=== PATIENT | female | born 1970 | race Caucasian/White ===

== ENCOUNTER → 2016-09-26 | Outpatient (CLI) | payer OTHER ==
[~2016-09-26] MED LIST: DOXYCYCLINE MO100 M1 PO; ESCITALOPRAM OX20 MG PO; LANTUS100 U/ML SC; LEXAPRO10 MG PO; LIPITOR10 MG PO; LISINOPRIL AND1 TAB PO; LISINOPRIL/HCTZ1 TA4 PO; LYRICA75 M1 PO; Lopressor25 MG PO; Lovenox40 MG/0.4 PO; METFORMIN HCL1000 MG PO; NOVOLOG FLEX100 U/ML SC; Percocet 325 MG1 TAB PO; TRAMADOL HCL50 MG PO; XARELTO20 M1 PO; ZOLPIDEM TART10 MG PO
== END | disposition home or self-care (01) ==
LOC: US 13:42
DX: M79.604 Pain in right leg (principal); R60.0 Localized edema; R59.9 Enlarged lymph nodes, unspecified

== ENCOUNTER → 2017-03-27 | Outpatient (CLI) | payer BC, OTHER | END | disposition home or self-care (01) | LOC: US 15:08 | DX: M79.604 Pain in right leg (principal) ==

== ENCOUNTER → 2018-04-29 | Outpatient (CLI) | payer BC, MEDICARE ==
[~2018-04-29] MED LIST changes: +BACLOFEN5 MG PO; +DOXYCYCLINE100 M3 PO; +GOOD SENSE ACID20 MG PO; +HYDR12.5C PO; +LANTUS SOL100 UNIT/1 SC; -LANTUS100 U/ML SC; +LOPRESSOR25 MG PO; +LOSARTAN POTASS25 M1 PO; +MEDROL DOSEPAK4 MG PO; +NOVOLOG FL100 UNIT/1 SQ; +PERCOCET 10-321 EACH PO; +PHENERGAN25 M3 PO; +TRAZODONE50 MG PO; +VITAMIN D50000 UNIT PO
[2018-04-29 14:54] LABS: BASO % 0.5 % (0.0-1.0); EOS # 0.2 10*3/uL (0.0-0.4); EOS % 2.2 % (1.0-4.0); HEMATOCRIT 33.1 % (37.0-47.0); HEMOGLOBIN 10.7 g/dl (12.0-16.0); LYMPH # 1.2 10*3/uL (1.3-4.4); LYMPH % 13.9 % (27.0-41.0); MEAN CELL VOLUME 87.1 fl (81.0-99.0); MEAN CORPUSCULAR HGB 28.2 pg (27.0-31.0); MEAN CORPUSCULAR HGB CONC 32.3 g/dl (33.0-37.0); MEAN PLATELET VOLUME 11.4 fl (9.6-12.3); MONO # 0.4 10*3/uL (0.1-1.0); MONO % 4.8 % (3.0-9.0); NEUT # 6.6 10*3/uL (2.3-7.9); NEUT % 78.4 % (47.0-73.0); PLATELET COUNT AUTOMATED 215 10*3/uL (130-400); RED CELL DISTRI WIDTH 15.9 % (0-14.5); WHITE BLOOD COUNT 8.5 10*3/uL (4.8-10.8)
[2018-04-29 15:08] LABS: ALBUMIN 2.9 gm/dl (3.1-4.5); ALKALINE PHOSPHATASE 97 U/L (45-117); BUN 21 mg/dl (7-24); CHLORIDE 105 mmol/L (98-107); CREATININE 0.94 mg/dL (0.55-1.02); POTASSIUM 4.1 mmol/L (3.5-5.1); SGOT/AST 17 IU/L (3-35); SGPT/ALT 20 U/L (12-78); SODIUM 139 mmol/L (136-145); TOTAL PROTEIN 7.4 gm/dL (6.4-8.2)
== END | disposition home or self-care (01) ==
LOC: RESCLI 13:22 → LAB 13:22
PROVIDERS: Emergency Medicine
DX: Z01.818 Encounter for other preprocedural examination (principal); M86.171 Other acute osteomyelitis, right ankle and foot; E11.42 Type 2 diabetes mellitus with diabetic polyneuropathy; E78.00 Pure hypercholesterolemia, unspecified; I10 Essential (primary) hypertension; I82.409 Acute embolism and thrombosis of unspecified deep veins of unspecified lower extremity; F32.9 Major depressive disorder, single episode, unspecified; Z79.84 Long term (current) use of oral hypoglycemic drugs; Z79.899 Other long term (current) drug therapy; Z90.710 Acquired absence of both cervix and uterus; Z88.0 Allergy status to penicillin; Z88.8 Allergy status to other drugs, medicaments and biological substances; Z90.49 Acquired absence of other specified parts of digestive tract

== ENCOUNTER → 2018-04-30 | Day surgery (SDC) | payer BC, MEDICARE ==
[~2018-04-30] VITALS: Ht 170.1 cm; Wt 122.5 kg
--- NOTE | ~2018-04-30 | O ---
[place], [place] OPERATIVE NOTE [id number] UNIT #: [id number] ROOM: DOCTOR: FRANK SERRATOZARINA Noonan BIRTHDATE: [birth year] DOS: 04/30/2018 SURGEON: Dr. Marie. ASSISTANTS: 1. Dr. Alf Ervin, fellow. 2. Vijay Dominguez, PGY1. PREOPERATIVE DIAGNOSES: 1. Osteomyelitis, right ankle, distal tibia. 2. Post-osteomyelitis, right talus. POSTOPERATIVE DIAGNOSES: 1. Osteomyelitis, right ankle, distal tibia. 2. Post-osteomyelitis, right talus. PROCEDURES: 1. Incision and debridement of bone right medial ankle. 2. Incision and debridement of bone of the medial ankle and harvesting bone. 3. Incision and debridement of bone, right talus and harvesting bone. The patient was seen in preoperative holding area. Appropriate site marking was performed. The patient and family concurred. She was brought in the OR and placed on well-padded OR table where anesthesia was achieved. Once the anesthesia was achieved in the operating room, we did appropriate timeout and everybody in the room concurred. At this time, attention was directed to the right lower extremity under fluoroscopy guidance. At this time, attention was turned to the medial portion. PROCEDURE #1: INCISION AND DEBRIDEMENT OF BONE, RIGHT MEDIAL ANKLE: Under fluoroscopy guidance, a 15 blade was used. An incision was made, was deepened in the same plane using sharp and blunt dissection avoiding neurovascular structures, carried down to bone. At this time, a Oaks elevator was used to remove any soft tissue of the bone. At this point in time, the bone was debrided and harvested from the medial tibia and bone was sent for Gram stain, aerobic, anaerobic, fungal acid fast as well as a biopsy. At this point in time, the skin was closed using 3-0 nylon. PROCEDURE #2: INCISION AND BLUNT DEBRIDEMENT OF THE RIGHT ANTEROLATERAL ANKLE: Under fluoroscopic guidance, an incision was made at the anterolateral aspect of the ankle, was deepened in the same plane using sharp and blunt dissection avoiding neurovascular structures, carried down to the bone. With a Oaks elevator, all soft tissue was reflected off the bone anterolaterally. At this point in time, the bone was debrided. Bone was sent for Gram stain, aerobic, anaerobic, fungal acid fast as well as a biopsy. At this point in time, the area was closed with 3-0 Prolene. PROCEDURE #3: INCISION AND BONE DEBRIDEMENT OF THE RIGHT TALUS: An incision was made under fluoroscopic guidance on the anterolateral aspect of the talus. At this point in time, it was deepened in the same plane using sharp and blunt [place], [place] OPERATIVE NOTE NAME: LUCIANO MOROCHO UNIT #: [id number] ROOM: DOCTOR: ZARINA MARIE DPM BIRTHDATE: [birth year] dissection avoiding neurovascular structures, carried down to the bone. At this time, a Oaks elevator was used to resect the soft tissue off the bone. At this time, bone was harvested for Gram stain, aerobic, anaerobic, fungal acid fast as well as a bone biopsy of the right. This wound was closed with 3-0 Prolene. The surgical wounds were dressed with Betadine-soaked Adaptic, 4 x 4s, Marty in a sterile compressive fashion. BK cast was applied to the right lower extremity. She tolerated the procedure and anesthesia well and left the OR with vital signs stable and vascular status intact. ZARINA MARIE DPM CM:OPRECORD:OPERATIVE NOTE [id number] ZARINA MARIE DPM 05/14/18 0804 interface
--- NOTE | ~2018-04-30 | WRIGHTHP ---
[place], [place] PATIENT HISTORY AND PHYSICAL EXAM NAME[facility]: [id number] UNIT #: [id number] ROOM: DOCTOR: ZARINA MARIE DPM BIRTHDATE: [birth year] DOS: 04/30/2018 The patient is seen for followup regarding right ankle ongoing issues. She is having Charcot deformity. She has had an attempted tibiotalar arthrodesis recently and she has had infection wound. At that time, she was set up for surgery at [facility] for bone biopsy and debridement of the bone of the right ankle and right talus. With this in mind, she is aware of pros, cons, risks and benefits. She denies any ongoing issues. She has been taking oral Medrol Dosepak, doxycycline and she is responding extremely well. Her tissue looks very good. Edema is markedly improved. The patient says she feels better and she has been monitoring her diet. Her fasting blood sugar came as 172. With this in mind, she agreed to consent. She agreed the site marking and she agreed the perioperative management. She agreed with the plan of treatment from this point forward. With this in mind, she understands that. Her mom was in the preop holding area, agreed to consent and preoperative management as well and the appropriate site marking. ZARINA MARIE DPM CM:HISPHYS:PATIENT HISTORY AND PHYSICAL EXAMINATION [id number] ZARINA MARIE DPM 05/14/18 0801 interface
--- NOTE | ~2018-04-30 | WRIGHTHP ---
[place], [place] PATIENT HISTORY AND PHYSICAL EXAM [facility]: [id number] UNIT #: [id number] ROOM: DOCTOR: ZARINA MARIE DPM BIRTHDATE: [birth year] DOS: 04/30/2018 LOWER EXTREMITY PHYSICAL EXAMINATION: VASCULAR: She has palpable pedal pulses 2/4 DP and PT bilaterally. Good cap refill time. There is markedly reduced edema in the right lower extremity. NEUROLOGIC: She has lack of protective sensation secondary to diabetic peripheral neuropathy. DERMATOLOGIC: She has multiple superficial noninfected breaks in the skin. Her skin issue is superficial at this point in time. It is markedly improved. It is pink, healthy granular. There are no cardinal signs of infection, drainage, undermining, tunneling noted on the right. Overall, the patient again appears to be doing significantly better. Her edema is reduced. MUSCULOSKELETAL: She is post-surgical reconstruction with infection and antibiotic cement in the right ankle. Orthopedic exam consistent with probable post-osteomyelitis of her right ankle. ZARINA MARIE DPM CM:HISPHYS:PATIENT HISTORY AND PHYSICAL EXAMINATION [id number] ZARINA MARIE DPM 05/14/18 0803 interface
[2018-04-30 07:07] VITALS: BP 166/93
[2018-04-30 08:30] VITALS: BP 143/80
[2018-04-30 08:45] VITALS: BP 166/82
[2018-04-30 09:00] VITALS: BP 132/66
[2018-04-30 09:15] VITALS: BP 128/68
[2018-05-01 17:11] LABS: ACID FAST SPEC PROCESSING Tissue Grinding (.)
[2018-05-01 17:11] LABS: ACID FAST SPEC PROCESSING Tissue Grinding (.)
[2018-06-11 11:04] LABS: ACID FAST CULTURE Negative (.)
[2018-06-11 11:04] LABS: ACID FAST CULTURE Negative (.)
== END | disposition home or self-care (01) ==
LOC: SDC 04-23 10:15
PROVIDERS: Podiatrist
DX: M89.8X7 Other specified disorders of bone, ankle and foot (principal); M86.8X6 Other osteomyelitis, lower leg; I10 Essential (primary) hypertension; E10.9 Type 1 diabetes mellitus without complications; E66.01 Morbid (severe) obesity due to excess calories; Z79.01 Long term (current) use of anticoagulants; Z90.710 Acquired absence of both cervix and uterus; Z98.890 Other specified postprocedural states; Z88.0 Allergy status to penicillin; Z88.8 Allergy status to other drugs, medicaments and biological substances; Z79.899 Other long term (current) drug therapy; Z68.41 Body mass index [BMI] 40.0-44.9, adult

== ENCOUNTER → 2023-07-31 | Day surgery (SDC) | payer OTHER ==
[~2023-07-31] VITALS: Ht 167.6 cm; Wt 95.3 kg
[2023-07-31] VITALS (9 sets, daily range): BP systolic 99–128; BP diastolic 53–87
[~2023-07-31] MED LIST changes: +CIPRO500 MG/5 M PO; +Clindamycin Phosphate 50 ML IV ONE; +DALVANCE500 MG IV; +DOXYCYCLINE HY100 M3 PO; +HYDROCODONE BIT10 MG PO; +HYDROmorphONE Hydrochloride 0.5 MG/0.5 ML SYRINGE IV ONE; +HYDROmorphONE Hydrochloride 0.5 MG/0.5 ML SYRINGE ONE; +Lidocaine Hydrochloride 2% 10 ML AMP IM ONE; +Midazolam Hydrochloride 2 MG/2 ML VIAL IV ONE; +Midazolam Hydrochloride 2 MG/2 ML VIAL IV STA; +OZEMPIC1 MG/0.71 SQ; +PERCOCET 5-3251 EACH PO; +PROPOFOL 200 MG/20 ML VIAL IV ONE; +SODIUM CHLORIDE 0.9% 1,000 ML IV ONE; +SODIUM CHLORIDE 0.9% 1,000 ML IV SCH; +VIBRAMYCIN100 MG PO; +Vancomycin Hydrochloride 1,000 MG VIAL T ONE; +Vancomycin Hydrochloride 250 ML IV ONE; +XARELTO10 MG PO; +ZYVOX600 MG PO; +fentaNYL CITRATE/PF 50 MCG/ML SYRINGE IV ONE; +fentaNYL CITRATE/PF 50 MCG/ML SYRINGE ONE
[2023-08-01 11:08] LABS: ACID FAST SPEC PROCESSING Tissue Grinding (.)
[2023-08-01 11:08] LABS: ACID FAST SPEC PROCESSING Tissue Grinding (.)
[2023-08-01 11:08] LABS: ACID FAST SPEC PROCESSING Tissue Grinding (.)
[2023-08-01 11:08] LABS: ACID FAST SPEC PROCESSING Tissue Grinding (.)
[2023-08-08 15:07] LABS: ANAEROBE RESULT 1 Bacteroides fragilis (.)
[2023-08-08 15:07] LABS: ANAEROBE RESULT 1 Bacteroides fragilis (.)
== END | disposition home or self-care (01) ==
LOC: SDC 07-29 09:30
PROVIDERS: ATTEND Podiatrist
DX: M86.671 Other chronic osteomyelitis, right ankle and foot (principal); E11.622 Type 2 diabetes mellitus with other skin ulcer; L97.319 Non-pressure chronic ulcer of right ankle with unspecified severity; I12.9 Hypertensive chronic kidney disease with stage 1 through stage 4 chronic kidney disease, or unspecified chronic kidney disease; E11.22 Type 2 diabetes mellitus with diabetic chronic kidney disease; N18.31 Chronic kidney disease, stage 3a; E11.3513 Type 2 diabetes mellitus with proliferative diabetic retinopathy with macular edema, bilateral; E11.42 Type 2 diabetes mellitus with diabetic polyneuropathy; F33.42 Major depressive disorder, recurrent, in full remission; E11.21 Type 2 diabetes mellitus with diabetic nephropathy; E11.649 Type 2 diabetes mellitus with hypoglycemia without coma; E11.65 Type 2 diabetes mellitus with hyperglycemia; E11.610 Type 2 diabetes mellitus with diabetic neuropathic arthropathy; E66.01 Morbid (severe) obesity due to excess calories; Z68.38 Body mass index [BMI] 38.0-38.9, adult; Z90.710 Acquired absence of both cervix and uterus; Z98.41 Cataract extraction status, right eye; Z98.42 Cataract extraction status, left eye; Z98.890 Other specified postprocedural states; Z79.899 Other long term (current) drug therapy

== ENCOUNTER → 2023-11-06 | Day surgery (SDC) | payer OTHER ==
[~2023-11-06] VITALS: Ht 167.6 cm; Wt 95.3 kg
[2023-11-06] VITALS (7 sets, daily range): BP systolic 89–149; BP diastolic 47–76
[~2023-11-06] MED LIST changes: +ACETAMINOPHEN 100 ML IV ONE; +BUPIVACAINE 0.5% 30 ML IV ONE; +FLUCONAZOLE 100 MG TAB PO SCH; +FLUCONAZOLE100 MG PO; -HYDROmorphONE Hydrochloride 0.5 MG/0.5 ML SYRINGE IV ONE; -HYDROmorphONE Hydrochloride 0.5 MG/0.5 ML SYRINGE ONE; +Ketorolac Tromethamine 30 MG/ML VIAL IV ONE; +LINEZOLID 600 MG TAB PO SCH; +Lactated Ringer's Solution 1,000 ML IV ONE; -Midazolam Hydrochloride 2 MG/2 ML VIAL IV ONE; -Midazolam Hydrochloride 2 MG/2 ML VIAL IV STA; +Ondansetron Hydrochloride 4 MG/2 ML VIAL IV ONE; +RIVAROXABAN 10 MG TAB PO SCH; +Ropivacaine Hydrochloride 5 MG/ML 20 ML AMP IJ ONE; -SODIUM CHLORIDE 0.9% 1,000 ML IV ONE; -SODIUM CHLORIDE 0.9% 1,000 ML IV SCH; -fentaNYL CITRATE/PF 50 MCG/ML SYRINGE IV ONE; -fentaNYL CITRATE/PF 50 MCG/ML SYRINGE ONE
[2023-11-07 11:08] LABS: ACID FAST SPEC PROCESSING Tissue Grinding (.)
[2023-11-07 11:08] LABS: ACID FAST SPEC PROCESSING Tissue Grinding (.)
[2023-11-07 11:08] LABS: ACID FAST SPEC PROCESSING Tissue Grinding (.)
[2023-11-07 11:08] LABS: ACID FAST SPEC PROCESSING Tissue Grinding (.)
[2023-11-12 15:07] LABS: ANAEROBE RESULT 1 Bacteroides fragilis (.)
[2023-11-12 15:07] LABS: ANAEROBE RESULT 1 Bacteroides fragilis (.)
[2023-11-12 15:07] LABS: ANAEROBE RESULT 1 Bacteroides fragilis (.)
[2023-11-12 15:07] LABS: ANAEROBE RESULT 1 Bacteroides fragilis (.)
== END | disposition home or self-care (01) ==
LOC: SDC 11-04 10:15
PROVIDERS: ATTEND Podiatrist
DX: S91.001A Unspecified open wound, right ankle, initial encounter (principal); M86.8X7 Other osteomyelitis, ankle and foot; I10 Essential (primary) hypertension; E11.9 Type 2 diabetes mellitus without complications; F32.A Depression, unspecified; G89.18 Other acute postprocedural pain; Z98.41 Cataract extraction status, right eye; Z98.42 Cataract extraction status, left eye; Z90.710 Acquired absence of both cervix and uterus; Z98.890 Other specified postprocedural states; Z88.0 Allergy status to penicillin; Z88.8 Allergy status to other drugs, medicaments and biological substances; X58.XXXA Exposure to other specified factors, initial encounter; Y93.89 Activity, other specified; Y92.89 Other specified places as the place of occurrence of the external cause; Y99.8 Other external cause status